=== PATIENT | female | born 1980 | race African-American/Black ===

== ENCOUNTER → 2018-12-25 | Outpatient (CLI) | payer OTHER ==
[~2018-12-25] MED LIST: ALEVE220 M1 PO; IBUPROFEN 400400 M2 PO; ULTRAM 50MG TAB50 MG PO; UNICOMPLEX M TA1 TA1 PO
== END ==
LOC: ULTRA 01:16
DX: N60.01 Solitary cyst of right breast (principal)

== ENCOUNTER → 2019-06-19 | Outpatient (CLI) | payer OTHER | LOC: ULTRA 09:30 → BC 09:30 | DX: Z12.31 Encounter for screening mammogram for malignant neoplasm of breast (principal); N60.01 Solitary cyst of right breast ==

== ENCOUNTER → 2020-06-26 | Outpatient (CLI) | payer OTHER | LOC: BC 15:02 | PROVIDERS: ATTEND Nurse Practitioner | DX: Z12.31 Encounter for screening mammogram for malignant neoplasm of breast (principal) ==

== ENCOUNTER → 2020-12-08 | Outpatient (CLI) | payer OTHER | LOC: MRI 10:47 | PROVIDERS: ATTEND Nurse Practitioner | DX: D25.9 Leiomyoma of uterus, unspecified (principal); N85.2 Hypertrophy of uterus ==

== ENCOUNTER → 2021-07-10 | Outpatient (CLI) | payer OTHER | LOC: RAD 15:43 | PROVIDERS: ATTEND Nurse Practitioner | DX: Z12.31 Encounter for screening mammogram for malignant neoplasm of breast (principal) ==

== ENCOUNTER → 2021-07-31 | Outpatient (CLI) | payer OTHER | LOC: BC 09:18 → ULTRA 09:18 → BC 14:34 | PROVIDERS: ATTEND Nurse Practitioner | DX: N63.10 Unspecified lump in the right breast, unspecified quadrant (principal); R92.8 Other abnormal and inconclusive findings on diagnostic imaging of breast ==